=== PATIENT | male | born 1975 ===

== ENCOUNTER 2018-04-02 10:20 | Emergency (ER) | payer BC ==
[2018-04-02 10:28] VITALS: BP 143/90; PULSE 82; RESP 16; TEMP 98.1; O2SAT 98
--- NOTE | 2018-04-02 10:59 | C.PDOC ---
History Of Present Illness 42 y/o male pt presents to the ER c/o x3 weeks of cough with green phlegm. Associated sx includes sore throat and upper back pain. Pt denies fever, chills, nausea, vomiting, abdominal pain, diarrhea, SOB, dysuria, rash and chest pain. 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 Time Seen by Provider: 04/02/18 10:34 Chief Complaint (Nursing): ENT Problem History Per: Patient History/Exam Limitations: no limitations Onset/Duration Of Symptoms: Days Current Symptoms Are (Timing): Still Present Past Medical History Reviewed: Historical Data, Nursing Documentation, Vital Signs Vital Signs: Last Vital Signs Temp 98.1 F 04/02/18 10:26 Pulse 82 04/02/18 10:26 Resp 16 04/02/18 10:26 BP 143/90 04/02/18 10:26 Pulse Ox 98 04/02/18 10:26 Family History: States: No Known Family Hx - Social History Hx Alcohol Use: No Hx Substance Use: Yes - Immunization History Hx Tetanus Toxoid Vaccination: No Hx Influenza Vaccination: No Hx Pneumococcal Vaccination: No Review Of Systems Constitutional: Negative for: Fever, Chills ENT: Positive for: Throat Pain Cardiovascular: Negative for: Chest Pain Respiratory: Positive for: Cough (with green phlegm ). Negative for: Shortness of Breath Gastrointestinal: Negative for: Nausea, Vomiting, Abdominal Pain, Diarrhea Genitourinary: Negative for: Dysuria Musculoskeletal: Positive for: Back Pain (upper ) Skin: Negative for: Rash Physical Exam - Physical Exam Appears: Non-toxic, No Acute Distress Skin: Warm, Dry Head: Normacephalic Eye(s): bilateral: PERRL, EOMI Oral Mucosa: Moist Tongue: Normal Appearing Throat: Normal, No Erythema, No Exudate Neck: Normal ROM (FROM), Supple Chest: Symmetrical Cardiovascular: Rhythm Regular Respiratory: Normal Breath Sounds Gastrointestinal/Abdominal: Soft, No Tenderness Back: No CVA Tenderness Extremity: Normal ROM (x4) Neurological/Psych: Oriented x3, Normal Speech, Normal Motor, Normal Sensation ED Course And Treatment O2 Sat by Pulse Oximetry: 98 (RA) Pulse Ox Interpretation: Normal Medical Decision Making Medical Decision Making: Rx written for z-pack for suspected bronchitis, given that he has had one week of productive cough. Rx also written for ibuprofen for back pain. Disposition - Disposition Disposition: HOME/ ROUTINE Disposition Time: 10:46 Condition: GOOD Additional Instructions: BUD DANIELS, thank you for letting us take care of you today. Your provider was Christy Duckworth MD and you were treated for THROAT PAIN. The emergency medical care you received today was directed at your acute symptoms. If you were prescribed any medication, please fill it and take as directed. It may take several days for your symptoms to resolve. Return to the Emergency Department if your symptoms worsen, do not improve, or if you have any other problems. Please contact your doctor or call one of the physicians/clinics you have been referred to that are listed on the Patient Visit Information form that is included in your discharge packet. Bring any paperwork you were given at discharge with you along with any medications you are taking to your follow up visit. Our treatment cannot replace ongoing medical care by a primary care provider outside of the emergency department. Thank you for allowing the [facility] team to be part of your care today. If you had an X-Ray or CT scan: A Radiologist will review the ED reading if any change in treatment is needed we will contact you. If you had a blood, urine, or wound culture: It will take several days for the results, if any change in treatment is needed we will contact you. If you had an STI test: It will take 48 hours for the results. Please call after 1 week if you have not heard back. Prescriptions: Azithromycin [Zithromax] 250 mg PO DAILY #6 tab RX: Ibuprofen [Motrin Tab] 800 mg PO Q8H PRN #20 tab PRN Reason: Pain, Moderate (4-7) Instructions: Acute Bronchitis, Adult (DC), Upper Back Pain (DC) Forms: RFMarq (Bengali), Work Excuse - Clinical Impression Clinical Impression: Bronchitis, Upper back pain - Scribe Statement The provider has reviewed the documentation as recorded by the Roman Roberts Do Provider Attestation: All medical record entries made by the Scribe were at my direction and personally dictated by me. I have reviewed the chart and agree that the record accurately reflects my personal performance of the history, physical exam, medical decision making, and the department course for this patient. I have also personally directed, reviewed, and agree with the discharge instructions and disposition.
== END 2018-04-02 11:07 | disposition home or self-care (01) ==
LOC: C.ER 10:20
DX: J40 Bronchitis, not specified as acute or chronic (principal); M54.6 Pain in thoracic spine